=== PATIENT | male | born 1985 | race Caucasian/White ===

== ENCOUNTER 2017-08-13 08:33 | Emergency (ER) | payer SELFPAY ==
[2017-08-13 08:34] VITALS: BP 131/73; PULSE 103; RESP 16; TEMP 36.7; O2SAT 99; BMI 25.1
--- NOTE | 2017-08-13 09:02 | ED.DCSUM_ITS ---
- ER Visit Summary Date of Service: 08/13/17 Chief Complaint: Sore throat History of Present Illness: The patient is a 32 M who states that for the past couple days she has had a runny nose and a cough. Now beginning last night into today he notes a sore throat. He notes throat is red. He states that he has started a new job and there is a lot of particulate matter in other departments and wonders if that is the cause. No reported fevers. Physical Examination: Afebrile vital signs are stable Gen: Well-nourished well-developed Head: Normocephalic atraumatic Eyes: Perrl EOMI ENT: TMs clear turbinate edema moist mucous membranes mild pharyngeal erythema without tonsillar swelling or exudates Neck: Supple no lymphadenopathy no JVD nontender CVS: Regular rate rhythm no murmurs normal S1-S2 Respiratory: No distress clear to auscultation bilaterally chest nontender Abdomen: Soft nontender nondistended normal bowel sounds no masses Back: Nontender Extremity: Nontender no edema Skin: Normal color no rash Neuro: alert orientated ?3 CN II-XII intact normal strength sensation reflexes gait cerebellar Psych: Normal affect normal mood Emergency Department Course and Treatment: This is most likely a viral URI. He will be treated symptomatically. Advised him to wear a mask at work see if that makes a difference with the particulate matter. Impression: 1. Viral URI 2. Pharyngitis viral This note was generated with [employer] dictation software. It may contain incorrect words, spelling, and punctuation that were not noted in review of the chart prior to signing ED Disposition - Plan for ED Patient: Disposition: Home or Assisted Living Chief Complaint: Sore Throat Instructions: ED Pharyngitis Viral Referrals: Donya Brown MD [Primary Care Provider] - 1 Week if not improving
== END 2017-08-13 09:11 | disposition home or self-care (01) ==
LOC: ED 09:06
PROVIDERS: Emergency Provider Emergency Medicine; Family Provider Internal Medicine; PCP Internal Medicine
DX: J02.8 Acute pharyngitis due to other specified organisms (principal); F32.9 Major depressive disorder, single episode, unspecified; F41.9 Anxiety disorder, unspecified
CPT/HCPCS: 99282

== ENCOUNTER 2017-09-24 09:57 | Emergency (ER) | payer SELFPAY ==
--- NOTE | 2017-09-24 09:57 | DT_ITS ---
This patient was seen during an EMR downtime September 21, 2017 - September 28, 2017. This patient may have a combination of paper and electronic documentation or all paper documentation. All documentation is viewable within the e-chart portion of [employer] for each patient visit.
== END 2017-09-24 11:50 | disposition home or self-care (01) ==
LOC: ED 16:23
PROVIDERS: Emergency Provider Emergency Medicine; Family Provider Internal Medicine; PCP Internal Medicine
DX: R11.2 Nausea with vomiting, unspecified (principal); R19.7 Diarrhea, unspecified; F17.220 Nicotine dependence, chewing tobacco, uncomplicated
CPT/HCPCS: 99282

== ENCOUNTER 2018-01-08 21:48 | Emergency (ER) | payer OTHER, SELFPAY ==
[2018-01-08 21:49] VITALS: BP 152/81; PULSE 84; RESP 15; TEMP 36.9; BMI 24.5
--- NOTE | 2018-01-08 22:48 | ED.DCSUM_ITS ---
- ER Visit Summary Date of Service: 01/08/18 Chief Complaint: Lump on left thigh History of Present Illness: The patient is a 32 M who noted a lump on his left thigh approximately week ago. He states there is no overlying skin change. There is no pain to the area. He just wanted to have it checked. Physical Examination: Blood pressure is 152/81, otherwise vitals normal. Head neck exam. No evidence of thrush. Heart is regular rate and rhythm. Lung sounds are clear. Abdomen is soft nontender. Left lower extremity examination reveals no palpable mass over the anterior left thigh. I do not appreciate an abscess. There is no skin change. He has normal strength and sensation. Strong distal pulses are noted. There is no edema. Test Results: [] Emergency Department Course and Treatment: I explained to the patient that I do not think there is any significant testing that is needed. He will be given a prescription for anti-inflammatories as needed. He has an upcoming appointment with his primary care physician and will have it rechecked. Treatment Plan: [] Disposition: Discharge Impression: Myalgias This note was generated with [employer] dictation software. It may contain incorrect words, spelling, and punctuation that were not noted in review of the chart prior to signing ED Disposition - Plan for ED Patient: Disposition: Home or Assisted Living Chief Complaint: Lower Extremity Injury Instructions: ED Muscle Aching Prescriptions: Naproxen [Naprosyn] 500 mg PO BID PRN PRN #10 tablet PRN Reason: Pain Referrals: Terrell Hernandes MD [Primary Care Provider] - Keep Tory appointment
== END 2018-01-08 22:54 | disposition home or self-care (01) ==
PROVIDERS: Emergency Provider Emergency Medicine; Family Provider Internal Medicine; PCP Internal Medicine
DX: M79.1 Myalgia (principal); F41.9 Anxiety disorder, unspecified; Z72.0 Tobacco use
CPT/HCPCS: 99282

== ENCOUNTER 2018-09-19 09:43 | Emergency (ER) | payer BC, SELFPAY ==
[2018-09-19 09:43] VITALS: BP 144/94; PULSE 85; RESP 18; TEMP 36.6; O2SAT 98; BMI 24.4
--- NOTE | 2018-09-19 10:08 | ED.DCSUM_ITS ---
- ER Visit Summary Date of Service: 09/19/18 Chief Complaint: Bleeding from left ear History of Present Illness: The patient is a 33 M who presents with bleeding from his left ear that he noticed this morning. Patient states his ear was itching and he scratched it with his pinky finger. Patient noted some bleeding after this. Patient states he is also had some upper respiratory congestion. Patient denies any fevers or chills. Patient denies any hearing changes. Patient denies any ear pain at the present time. Physical Examination: Vital signs are stable. Patient is afebrile. Patient is in no acute distress. The left external auditory canal has a superficial abrasion on the anterior aspect. There is no bleeding noted. Tympanic membrane is clear. The right external auditory canal and tympanic membrane is clear. Oral mucosa is pink and moist. Neck is supple. Trachea is midline. There is no JVD or lymphadenopathy noted. Heart was regular rate and rhythm. Lungs are clear and equal bilaterally. There is good respiratory effort noted. Emergency Department Course and Treatment: Patient was advised that this is an abrasion to his left external auditory canal. Patient was instructed to stop scratching his ear. Patient was instructed to apply bacitracin or Neosporin ointment to a Q-tip and apply it to his left external auditory canal. Patient was instructed to follow-up with his primary care physician in 5 to 7 days. Patient understood and was agreeable with the plan. All questions were answered. Disposition: Discharge home Impression: Abrasion to left external auditory canal This note was generated with [employer] dictation software. It may contain incorrect words, spelling, and punctuation that were not noted in review of the chart prior to signing ED Disposition - Plan for ED Patient: Disposition: Home or Assisted Living Diagnosis: Abrasion of left ear canal Instructions: ED Abrasion Referrals: Terrell Hernandes MD [Primary Care Provider] - 5-7 Days
[2018-09-19 10:34] VITALS: BP 135/90; PULSE 64; RESP 17
== END 2018-09-19 10:35 | disposition home or self-care (01) ==
PROVIDERS: Emergency Provider Emergency Medicine; Family Provider Family Medicine; PCP Family Medicine
DX: S00.412A Abrasion of left ear, initial encounter (principal); X58.XXXA Exposure to other specified factors, initial encounter; Y93.89 Activity, other specified; Y92.9 Unspecified place or not applicable; F41.9 Anxiety disorder, unspecified; Z72.0 Tobacco use
CPT/HCPCS: 99282

== ENCOUNTER 2019-01-13 07:40 | Emergency (ER) | payer BC, SELFPAY ==
[2019-01-13 07:40] VITALS: BP 157/91; PULSE 78; RESP 18; TEMP 36.6; O2SAT 99; BMI 25.1
--- NOTE | 2019-01-13 07:47 | ED.VIS.GEN ---
History of Present Illness Chief Complaint: Dental Informant: Patient Onset: Days Current Severity: Mild Maximum Severity: Mild Narrative: Patient presents with dental pain for the past 3 or 4 days. He has an area of erythema with a small white center region along the upper portion of the left gums. He states anytime he tries to eat it is more painful. No difficulty swallowing. He used to see a dentist in [place], but has not seen him in a couple years. Past Medical History - Allergies and Home Meds Allergies/Adverse Reactions: Allergies Penicillins Allergy (Verified 01/13/19 07:42) Unknown Primary Care Physician: Walker Gutierrez MD [Primary Care Provider] - Prior records reviewed: Yes Past Medical History: - - Reviewed Smoking Status: Current every day smoker Review of Systems General: Denies: Chills, Fever Eyes: Denies: Visual changes - bilaterally ENT: Reports: - - Left upper dental pain. Denies: Bilateral ear pain Cardiovascular: Denies: Chest pain Respiratory: Denies: Dyspnea, Cough Gastrointestinal: Denies: Abdominal pain, Nausea, Vomiting, Diarrhea Musculoskeletal: Denies: Neck pain Skin: Denies: Rash Neurological: Denies: Headache Hematologic: Denies: Easy bruising, Easy bleeding Allergy: Denies: Uticaria Physical Exam Vital Signs/Narrative: Vital Signs Temp Pulse Resp BP Pulse Ox 01/13/19 07:40 98 F 78 18 157/91 H 99 Inital Vital Signs reviewed: Yes General: Well nourished, Well developed Head: Normocephalic ENT: Moist mucous membranes, - - Multiple dental caries. Mild gum erythema and sign of infection along the left maxillary canine and first and second premolars. There is an area of erythema more superior to this as well. There is no trismus. Posterior pharynx is unremarkable. Patient is tolerating secretions and has strong voice. Neck: Supple, Nontender Cardiovascular: Regular rate, Regular rhythm, No murmurs Respiratory: No distress, CTA bilaterally Abdomen: Soft, Nontender Extremities: Nontender Skin: Normal color, No rash Neurological: Alert, Oriented x3 Psychological: Normal affect Diagnostic/Tx/Re-eval - Medical Decision Making Patient does have a penicillin allergy will be given a prescription for clindamycin. He states he recently got dental insurance and will check with his company to see who is covered in the area. He will also be given a dental referral list as back-up. ED Disposition - Plan for ED Patient: Disposition: Home or Assisted Living Instructions: Dental Abscess Prescriptions: Clindamycin [Cleocin] 300 mg PO 4X/DAY #80 capsule Referrals: Walker Gutierrez MD [Primary Care Provider] -
[2019-01-13] MEDS: Clindamycin HCl 150 MG Capsule 300 MG PO (07:57)
== END 2019-01-13 08:04 | disposition home or self-care (01) ==
LOC: ED 08:01
PROVIDERS: Emergency Provider Emergency Medicine; Family Provider Family Medicine; PCP Family Medicine
DX: K04.7 Periapical abscess without sinus (principal); F17.200 Nicotine dependence, unspecified, uncomplicated; Z88.0 Allergy status to penicillin
CPT/HCPCS: 99283

== ENCOUNTER 2020-05-12 21:53 | Emergency (ER) | payer BC, SELFPAY ==
[2020-05-12 21:54] VITALS: BP 159/86; PULSE 84; RESP 16; TEMP 37.1; O2SAT 97; BMI 29.2
[2020-05-12] MEDS: Fluorescein 1 MG STRIP 1 STRIP RIGHT EYE (22:25)
--- NOTE | 2020-05-12 22:31 | ED.VIS.GEN ---
History of Present Illness Chief Complaint: Eye Problem Informant: Patient Narrative: Patient presents with irritation to his right eye. He is notices red and inflamed. He is using an [id number] medication for pinkeye. No injury to his eye. No history of abrasion or ulcer. Vision normal. Current severity is mild. Comes in for further evaluation and treatment. Past Medical History - Allergies and Home Meds Allergies/Adverse Reactions: Allergies Penicillins Allergy (Verified 05/12/20 21:54) Unknown Primary Care Physician: Walker Gutierrez MD [Primary Care Provider] - Prior records reviewed: Yes Past Medical History: - Surgical History: - - Reviewed Smoking Status: Current every day smoker Alcohol: None Drugs: None Review of Systems General: Denies: Chills, Fever, Sweats Eyes: Reports: Blurred vision - right. Denies: Visual changes - bilaterally, Diplopia ENT: Denies: Rhinorrhea, Sore throat Cardiovascular: Denies: Chest pain, Palpitations Respiratory: Denies: Dyspnea, Cough, Dyspnea on exertion Gastrointestinal: Denies: Abdominal pain, Nausea, Vomiting, Diarrhea, Melena, Hematochezia Genitourinary: Denies: Dysuria, Hematuria, Frequency Musculoskeletal: Denies: Back pain, Extremity Pain Skin: Denies: Rash, Wounds Neurological: Denies: Headache, Weakness, Numbness Physical Exam Vital Signs/Narrative: Vital Signs Temp Pulse Resp BP Pulse Ox 05/12/20 21:54 98.7 F 84 16 159/86 H 97 General: Well nourished, Well developed, No Acute Distress Head: Normocephalic, Atraumatic Eyes: Perrl, EOMI, - - Right ocular pinkeye. No foreign body seen. Fluorescein instilled with no scratches abrasions or ulcers. Normal exam other than mild conjunctivitis. Negative for: Scleral icterus ENT: Moist mucous membranes, No rhinorrhea Neck: Supple, Nontender Cardiovascular: Regular rate, Regular rhythm, No murmurs Respiratory: No distress, CTA bilaterally, Chest nontender Abdomen: Soft, Nontender, Nondistended, Normal bowel sounds Back: Nontender, Normal Inspection Extremities: Nontender, No edema Skin: Normal color, No rash Neurological: Alert, Oriented x3, Cranial nerves II-XII grossly intact, Normal Strength, Normal Sensation Psychological: Normal affect, Normal Mood Diagnostic/Tx/Re-eval - Medical Decision Making Patient has conjunctivitis. Given bacitracin ophthalmic. Will use ibuprofen and follow-up as an outpatient ED Disposition - Plan for ED Patient: Disposition: Home or Assisted Living Diagnosis: Conjunctivitis Instructions: ED Conjunctivitis, Nonspecific Referrals: Torin Torres MD [STAFF PHYSICIAN] -
[2020-05-12 22:43] VITALS: RESP 18
== END 2020-05-12 22:43 | disposition home or self-care (01) ==
PROVIDERS: Emergency Provider Emergency Medicine; PCP Family Medicine
DX: H10.9 Unspecified conjunctivitis (principal); F17.200 Nicotine dependence, unspecified, uncomplicated
CPT/HCPCS: 99283

== ENCOUNTER 2023-11-25 16:55 | Emergency (ER) | payer MEDICAID, SELFPAY ==
[2023-11-25 16:56] VITALS: BP 139/101; PULSE 68; RESP 16; TEMP 35.7; O2SAT 99; BMI 29.5
--- NOTE | 2023-11-25 17:03 | ED.VIS.LOWEX ---
HPI History of Present Illness Chief Complaint: Lower Extremity Injury Informant: patient Narrative Narrative: 38-year-old male healthy injured his right ankle several hours ago when he was stepping off of a tall curb and accidentally twisted his right ankle/foot. Pain is lateral malleolus. He has been able to put weight on it since the injury but it swelled a lot. He has sprained this ankle before. No other injuries. No numbness or weakness. PFSH PFSH Medical History no medical history Home Medications ?Medication ?Instructions ?Recorded ?Last Taken ?Type fluoxetine 10 mg capsule 40 mg PO DAILY 03/09/14 08/12/17 History metoprolol tartrate 50 mg tablet 50 mg PO Q12.TCU 11/25/23 Unknown History Allergy/AdvReac Type Severity Reaction Status Date / Time Penicillins Allergy Unknown Verified 11/25/23 16:56 Family History no significant family his Surgical History no surgical history Social History Smoking Status: Current every day smoker tobacco type: cigarettes ROS ROS ED Constitutional Constitutional ED: Denies chills or fever(s) Musculoskeletal Musculoskeletal: Reports extremity pain; Denies neck pain Integumentary Denies Abrasions, rash or wounds Neurologic Neurologic: Denies paresthesias or weakness EXAM Physical Exam Const Vital Signs: 11/25/23 16:56 Temperature 96.2 F L Temperature Source Temporal Pulse Rate 68 Respiratory Rate 16 Blood Pressure 139/101 H Blood Pressure Mean 113 Pulse Ox 99 Oxygen Delivery Method Room Air Positive well nourished and well developed General Appearance ED: well developed and NAD Neck full ROM and supple Back/Spine normal ROM and normal to inspection Extremity Extremity Narrative: Swelling and tenderness right lateral malleolus. Skin intact. No tenderness or swelling at the medial malleolus, base of the fifth metatarsal, proximal fibula. Able to move the ankle, mortise is stable, limited range of motion due to pain. Neurovascular intact distally no other areas of bony tenderness. Neuro oriented x3, no focal motor deficits and no sensory deficits noted Sensorium / Orientation: alert Psych mental status grossly normal and thought process normal Skin no wounds Rashes: no rashes MDM MDM MDM Narrative Medical decision making narrative: Three-view x-ray series of the right ankle negative for acute fracture on my interpretation. Patient reassured, this is likely a moderate sprain, he will be placed in an Aircast given ibuprofen appropriate instructions for supportive care and follow-up as needed if not improving after 2 weeks. He is comfortable with that plan does not require crutches. Radiography Diagnostic Testing: Clinical Impression(s) from Imaging Studies Ankle X-Ray 11/25/23 17:06 IMPRESSION: Lateral malleolus sprain. No acute fracture or dislocation. Electronically Signed: Willie Woody MD at 17:20 EDT , Discharge Plan Triage Chief Complaint: Lower Extremity Injury ED Provider: Jose Dawn Dx/Rx/DC Orders Clinical Impression: Right ankle sprain Instructions: ED Ankle Sprain (Adult) Prescriptions: No Action fluoxetine 10 MG capsule 40 mg PO DAILY metoprolol tartrate 50 mg tablet 50 mg PO Q12.TCU Primary Care Provider: Walker Gutierrez Referrals: Walker Gutierrez MD [Primary Care Provider] - 10-14 Days if not better Print Language: Bruneian Disposition Disposition: Home, Self Care
--- NOTE | 2023-11-25 17:06 | RAD_ITS ---
STUDY: X-RAY - RIGHT ANKLE REASON FOR EXAM: Male, 38 years old. injury TECHNIQUE: 3 view(s) of the ankle. COMPARISON: None. FINDINGS: Normal visualized distal tibia and fibula. Normal medial and lateral malleoli. Normal tibiotalar articulation and ankle mortise. Normal visualized talus. There are tiny plantar calcaneal spur and posterior enthesophyte The visualized subtalar, talonavicular, calcaneocuboid and tarsal articulations are normal. Soft tissue swelling overlying the lateral malleolus.. RAD/Ankle min 3 Views IMPRESSION: Lateral malleolus sprain. No acute fracture or dislocation. Electronically Signed: Willie Woody MD at 17:20 EDT ,
[2023-11-25 17:31] VITALS: BP 139/101; PULSE 68; RESP 16; TEMP 35.7; O2SAT 99
[2023-11-25] MEDS: Ibuprofen 600 MG Tablet PO (17:38)
== END 2023-11-25 17:42 | disposition home or self-care (01) ==
LOC: ED 17:30
PROVIDERS: Emergency Provider Emergency Medicine; PCP Family Medicine; Visit Provider Emergency Medicine
DX: S93.401A Sprain of unspecified ligament of right ankle, initial encounter (principal); X50.1XXA Overexertion from prolonged static or awkward postures, initial encounter; Y93.01 Activity, walking, marching and hiking; F17.210 Nicotine dependence, cigarettes, uncomplicated
CPT/HCPCS: 73610; 99283

== ENCOUNTER 2023-12-04 21:50 | Emergency (ER) | payer MEDICAID, SELFPAY ==
[2023-12-04 21:50] VITALS: BP 155/97; PULSE 80; RESP 16; TEMP 36.8; O2SAT 99; BMI 29.7
--- NOTE | 2023-12-04 23:47 | ED.VIS.LOWEX ---
HPI History of Present Illness HPI Narrative: Patient presented with pain and swelling to his ankle. When I went to see the patient, there was no one in the room. Nursing staff reported patient left prior to my evaluation. Chief Complaint: Lower Extremity Injury [facility] Medical History (Updated 12/04/23 @ 22:33 by Lyric Connell) Hypertension Home Medications ?Medication ?Instructions ?Recorded ?Last Taken ?Type fluoxetine 10 mg capsule 40 mg PO DAILY 03/09/14 08/12/17 History metoprolol tartrate 50 mg tablet 50 mg PO Q12.TCU 11/25/23 Unknown History Allergy/AdvReac Type Severity Reaction Status Date / Time Penicillins Allergy Unknown Verified 12/04/23 21:52 Social History Smoking Status: Current every day smoker tobacco type: smokeless tobacco EXAM Physical Exam Const Vital Signs: 12/04/23 21:50 Temperature 98.2 F Temperature Source Oral Pulse Rate 80 Respiratory Rate 16 Blood Pressure 155/97 H Blood Pressure Mean 116 Pulse Ox 99 Oxygen Delivery Method Room Air Discharge Plan Triage Chief Complaint: Lower Extremity Injury ED Provider: Heron Lyon Dx/Rx/DC Orders Prescriptions: No Action fluoxetine 10 MG capsule 40 mg PO DAILY metoprolol tartrate 50 mg tablet 50 mg PO Q12.TCU Primary Care Provider: Walker Gutierrez Print Language: Swedish Disposition Disposition: LEFT WITHOUT BEING SEEN Discharge Date/Time: 12/04/23 23:30
== END 2023-12-04 23:30 | disposition left against medical advice (07) ==
PROVIDERS: PCP Family Medicine
DX: M25.579 Pain in unspecified ankle and joints of unspecified foot (principal); I10 Essential (primary) hypertension; F17.220 Nicotine dependence, chewing tobacco, uncomplicated; Z79.899 Other long term (current) drug therapy
CPT/HCPCS: 99281